=== PATIENT | male | born 1990 | race African-American/Black ===

== ENCOUNTER 2017-03-17 10:28 | Emergency (ER) | payer OTHER ==
[2017-03-17] MEDS: HYDROCODONE/APAP (10/325) TAB PO (11:05)
== END 2017-03-17 13:46 | disposition home or self-care (01) ==
LOC: FTE 10:28
DX: N50.812 Left testicular pain (principal)
CPT/HCPCS: 76870; 99284-25

== ENCOUNTER 2018-05-15 02:00 | Inpatient (IN) | payer OTHER ==
[2018-05-15] MEDS: HYDROCODONE/APAP (10/325) TAB PO (02:17)
[2018-05-15] MEDS: morphine 4 MG/ML VIAL IV (03:05)
[2018-05-15] MEDS: ONDANSETRON 4 MG INJ IV (03:05)
[2018-05-15] MEDS: SOD CHLORIDE 0.9% 1,000 ML IV ×4 (03:06→23:08)
[2018-05-15 03:11] LABS: ADD MAN DIFF? NO
[2018-05-15 03:12] LABS: WHITE BLOOD COUNT 10.6 10^3/ul (4.8-10.8)
[2018-05-15 03:12] LABS: BASOPHILS % 0.4 % (0.0-2.0); EOSINOPHILS # 0.1 10^3/ul (0.0-0.5); EOSINOPHILS % 0.7 % (0.0-7.0); HEMATOCRIT 43.1 % (42.0-52.0); HEMOGLOBIN 14.5 g/dl (14.0-18.0); LYMPHOCYTES % 9.4 % (15.0-51.0); MEAN CORPUSCULAR HEMOGLOBIN 29.6 pg (29.0-33.0); MEAN CORPUSCULAR HGB CONC 33.6 g/dl (32.0-37.0); MEAN PLATELET VOLUME 9.8 fl (7.4-10.4); MONOCYTE # 0.6 10^3/ul (0.3-0.9); MONOCYTES % 5.3 % (0.0-11.0); NEUTROPHIL # 8.9 10^3/ul (1.6-7.5); NEUTROPHILS % 83.8 % (39.0-77.0); PLATELET COUNT 237 10^3/UL (140-415)
[2018-05-15] MEDS ORDERED: DOCUSATE SODIUM 100 MG CAP PO (03:30)
[2018-05-15] MEDS ORDERED: ONDANSETRON 4 MG INJ IV (03:30)
[2018-05-15] MEDS ORDERED: ACETAMINOPHEN 325 MG TAB PO (03:30)
[2018-05-15] MEDS ORDERED: NACL 0.9% 3 ML SYG IV (03:30)
[2018-05-15] MEDS ORDERED: BISACODYL (EC) 5 MG TAB PO (03:30)
[2018-05-15 03:32] LABS: PROTIME 13.3 Sec (11.9-14.9)
[2018-05-15 03:33] LABS: PARTIAL THROMBOPLASTIN TIME 22.8 Sec (23.0-35.0)
[2018-05-15 03:34] LABS: ALANINE AMINOTRANSFERASE 22 IU/L (13-69); ALBUMIN 4.3 g/dl (3.3-4.9); ALBUMIN/GLOBULIN RATIO 1.38; ALKALINE PHOSPHATASE 80 IU/L (42-121); ANION GAP 10 (5-13); ASPARTATE AMINO TRANSFERASE 25 IU/L (15-46); BILIRUBIN,INDIRECT 0.5 mg/dl (0-1.1); BILIRUBIN,TOTAL 0.5 mg/dl (0.2-1.3); BLOOD UREA NITROGEN 12 mg/dl (7-20); CALCIUM 9.7 mg/dl (8.4-10.2); CARBON DIOXIDE 27 mmol/L (21-31); CHLORIDE 105 mmol/L (97-110); CREATININE 1.01 mg/dl (0.61-1.24); Estimated GFR > 60 mL/min (>60); GLUCOSE 105 mg/dl (70-220); LIPASE 100 U/L (23-300); SODIUM 142 mmol/L (135-144); TOTAL PROTEIN 7.4 g/dl (6.1-8.1)
[2018-05-15 03:39] LABS: POTASSIUM 3.7 mmol/L (3.5-5.1)
[2018-05-15] MEDS: morphine 2 MG INJ IV ×4 (06:53→21:40)
[2018-05-15 08:21] LABS: ETHANOL < 10.0 mg/dl (0-0)
[2018-05-15] MEDS ORDERED: NEOMYC/POLYMYX/BACIT 0.9 GM OINT (14:28)
[2018-05-15] MEDS: HYDROCODONE/APAP (5/325) TAB PO (19:55)
[2018-05-16] MEDS: SOD CHLORIDE 0.9% 1,000 ML IV ×3 (02:13→17:37)
[2018-05-16] MEDS: morphine 2 MG INJ IV ×3 (04:47→20:16)
[2018-05-16 05:41] LABS: ADD MAN DIFF? NO
[2018-05-16 05:49] LABS: WHITE BLOOD COUNT 7.1 10^3/ul (4.8-10.8)
[2018-05-16 05:49] LABS: BASOPHILS % 0.4 % (0.0-2.0); EOSINOPHILS # 0.4 10^3/ul (0.0-0.5); EOSINOPHILS % 5.1 % (0.0-7.0); HEMOGLOBIN 14.5 g/dl (14.0-18.0); LYMPHOCYTES # 1.7 10^3/ul (0.8-2.9); LYMPHOCYTES % 24.2 % (15.0-51.0); MEAN CORPUSCULAR HEMOGLOBIN 29.1 pg (29.0-33.0); MEAN CORPUSCULAR VOLUME 88.4 fl (82.0-101.0); MEAN PLATELET VOLUME 10.2 fl (7.4-10.4); MONOCYTE # 0.5 10^3/ul (0.3-0.9); NEUTROPHIL # 4.5 10^3/ul (1.6-7.5); PLATELET COUNT 225 10^3/UL (140-415); RED BLOOD COUNT 4.98 10^6/ul (4.70-6.10); RED CELL DISTRIBUTION WIDTH 12.3 % (11.5-14.5)
[2018-05-16 06:35] LABS: ALANINE AMINOTRANSFERASE 19 IU/L (13-69); ALBUMIN/GLOBULIN RATIO 1.37; ALKALINE PHOSPHATASE 69 IU/L (42-121); ANION GAP 9 (5-13); ASPARTATE AMINO TRANSFERASE 28 IU/L (15-46); BILIRUBIN,INDIRECT 0.4 mg/dl (0-1.1); BILIRUBIN,TOTAL 0.4 mg/dl (0.2-1.3); BLOOD UREA NITROGEN 10 mg/dl (7-20); CALCIUM 9.1 mg/dl (8.4-10.2); CARBON DIOXIDE 28 mmol/L (21-31); CHLORIDE 103 mmol/L (97-110); CREATININE 0.89 mg/dl (0.61-1.24); Estimated GFR > 60 mL/min (>60); GLUCOSE 94 mg/dl (70-220); POTASSIUM 3.8 mmol/L (3.5-5.1); SODIUM 140 mmol/L (135-144); TOTAL PROTEIN 6.9 g/dl (6.1-8.1)
[2018-05-16] MEDS ORDERED: ROCURONIUM 50 MG INJ (07:00)
[2018-05-16 08:46] LABS: HEMOGLOBIN A1C 5.3 % (0-5.9)
[2018-05-16] MEDS: ACETAMINOPHEN 500 MG TAB PO (10:50)
[2018-05-16] MEDS ORDERED: hydrALAzine 20 MG INJ IV (11:00)
[2018-05-16] MEDS ORDERED: PROPOFOL 20 ML (12:29)
[2018-05-16] MEDS ORDERED: ONDANSETRON 4 MG INJ (12:30)
[2018-05-16] MEDS ORDERED: MIDAZOLAM 1 MG/ML 2 ML INJ (12:30)
[2018-05-16] MEDS ORDERED: FAMOTIDINE 20 MG INJ (12:30)
[2018-05-16] MEDS ORDERED: FENTAnyl 50 MCG/ML VIAL ×2 (12:30→15:00)
[2018-05-16] MEDS ORDERED: ROPIVACAINE 0.5 % 30 ML VIAL (12:36)
[2018-05-16] MEDS: POLYMYXIN/BACITRACIN 1L IRRIG (13:54)
[2018-05-16] MEDS ORDERED: SOD CHLORIDE 0.9% 1,000 ML IV (16:22)
[2018-05-16] MEDS ORDERED: NACL 0.9% 3 ML SYG IV (16:30)
[2018-05-16] MEDS: CEFAZOLIN 1 GM/50 ML (PMX) 50 ML IVPB (20:19)
[2018-05-17] MEDS: morphine 2 MG INJ IV ×2 (02:46→08:45)
[2018-05-17] MEDS: HYDROCODONE/APAP (5/325) TAB PO ×3 (04:37→12:48)
[2018-05-17] MEDS: CEFAZOLIN 1 GM/50 ML (PMX) 50 ML IVPB ×2 (04:38→12:34)
[2018-05-17] MEDS: SOD CHLORIDE 0.9% 1,000 ML IV (05:09)
[2018-05-17] MEDS: ASPIRIN (EC) 325 MG TAB PO (08:37)
== END 2018-05-17 14:58 | disposition home or self-care (01) | DRG 512 ==
LOC: MS1 03:52 → E/R 02:00 → MS1 05-16 12:17
PROC: 0PSJ04Z Reposition Left Radius with Internal Fixation Device, Open Approach (ICD-10-PCS; principal; 2018-05-16 12:58)
PROC: 0RSPXZZ Reposition Left Wrist Joint, External Approach (ICD-10-PCS; 2018-05-16 12:58)
DX: S52.372A Galeazzi's fracture of left radius, initial encounter for closed fracture (principal); S52.612A Displaced fracture of left ulna styloid process, initial encounter for closed fracture; S00.83XA Contusion of other part of head, initial encounter; V49.40XA Driver injured in collision with unspecified motor vehicles in traffic accident, initial encounter; Y92.410 Unspecified street and highway as the place of occurrence of the external cause
CPT/HCPCS: 36415; 70450; 70480; 72125; 73090; 73100; 73110-LT; 73110-RT; 80053; 80307; 83036; 83690; 85025; 85610; 85730; 93005; 96374; 96375; 99285-25